=== PATIENT | female | born 1945 | race Caucasian/White ===

== ENCOUNTER 2021-01-16 20:43 | Emergency (ER) | payer OTHER ==
[~2021-01-16] VITALS: Ht 160 cm; Wt 68.0 kg
[~2021-01-16 20:43] MED LIST: AMLODIPINE PO; ASPIR 8181 MG PO; ATENOLOL50 MG PO; CALTRATE 600 W-1 TAB PO; CLONAZEPAM1 MG PO; PANTOPRAZOLE SO40 MG PO; RETASIS; SINGULAIR10 MG PO; TIMOLOL MALEATE5 ML OP; [UNRECOGNIZED DRUG - REMARK]
[2021-01-16] MEDS ORDERED: ALIGN4 MG (21:00)
[2021-01-16] MEDS ORDERED: [UNRECOGNIZED DRUG - OTHER] (21:01)
[2021-01-16] MEDS ORDERED: BETIMOL5 M1 (21:01)
[2021-01-16] MEDS ORDERED: AZELASTINE HCL6 ML (21:01)
[2021-01-16] MEDS ORDERED: LODOSYN25 MG (21:02)
[2021-01-16] MEDS ORDERED: PEPCID20 MG (21:02)
[2021-01-16] MEDS ORDERED: GRALISE600 MG (21:03)
[2021-01-16] MEDS ORDERED: MONTELUKAST SODI4 M1 (21:03)
[2021-01-16] MEDS ORDERED: APRESOLINE 10MG10 MG (21:03)
[2021-01-16] MEDS ORDERED: PROTONIX20 MG (21:04)
[2021-01-16] MEDS ORDERED: MUCINEX600 MG (21:04)
[2021-01-16] MEDS ORDERED: STIOLTO RESPIMAT4 GM (21:05)
== END 2021-01-17 17:50 | disposition designated cancer center or children's hospital (05) ==
LOC: ER 20:43
DX: K91.89 Other postprocedural complications and disorders of digestive system (principal); Z90.49 Acquired absence of other specified parts of digestive tract; R41.0 Disorientation, unspecified; I10 Essential (primary) hypertension; N39.0 Urinary tract infection, site not specified